=== PATIENT | female | born 1955 | race Caucasian/White ===

== ENCOUNTER → 2022-01-26 11:46 | Outpatient (CLI) | payer OTHER, SELFPAY ==
--- NOTE | 2022-01-26 11:50 | DI.MG.S_ITS ---
BILATERAL DIGITAL SCREENING MAMMOGRAM 3D/2D WITH CAD: 01/26/2022 CLINICAL: Routine screening. Comparison is made to exams dated: 02/19/2015 ultrasound, 02/19/2015 ultrasound, 02/19/2015 mammogram, and 02/03/2010 mammogram - [facility]. The tissue of both breasts is predominantly fatty. Current study was also evaluated with a Computer Aided Detection (CAD) system. There is possible architectural distortion in the left breast at 4 o'clock posterior depth. No other significant masses, calcifications, or other findings are seen in either breast. IMPRESSION: INCOMPLETE: NEEDS ADDITIONAL IMAGING EVALUATION The possible architectural distortion in the left breast is indeterminate. Additional views with possible ultrasound are recommended. This exam was interpreted at Station ID: [id number]. NOTE: For mammograms, a report in lay terms will be sent to the patient. Approximately 15% of breast malignancies will not be visualized mammographically. In the management of a palpable breast mass, a negative mammogram must not discourage biopsy of a clinically suspicious lesion. Electronically Signed By: Jerrod Gill M.D., jr/lisa:01/26/2022 12:11:15 letter sent: Additional Imaging Needed ACR BI-RADS Category 0: Incomplete [id number]
== END ==
PROVIDERS: Family Provider Nurse Practitioner; PCP Nurse Practitioner; Referring Provider Nurse Practitioner; Visit Provider Nurse Practitioner
DX: Z12.31 Encounter for screening mammogram for malignant neoplasm of breast (principal)
CPT/HCPCS: 77063; 77067

== ENCOUNTER → 2022-03-16 12:10 | Outpatient (CLI) | payer OTHER, SELFPAY ==
--- NOTE | 2022-03-16 12:13 | DI.MG.S_ITS ---
UNILATERAL LEFT DIGITAL DIAGNOSTIC MAMMOGRAM 3D/2D WITH ADDITIONAL VIEWS: 03/16/2022 CLINICAL: Additional evaluation requested from prior study. Comparison is made to exams dated: 01/26/2022 mammogram, 02/19/2015 mammogram, and 02/03/2010 mammogram - [facility]. The tissue of left breast is extremely dense, which lowers the sensitivity of mammography. There is possible architectural distortion in the left breast at 4 o'clock posterior depth. This is not seen in additional views. No other significant masses or calcifications are seen in the breast. IMPRESSION: INCOMPLETE: NEEDS ADDITIONAL IMAGING EVALUATION The possible architectural distortion in the left breast is not confirmed. A second look with targeted ultrasound is recommended and will immediately follow. This exam was interpreted at Station ID: [id number]. NOTE: For mammograms, a report in lay terms will be sent to the patient. Approximately 15% of breast malignancies will not be visualized mammographically. In the management of a palpable breast mass, a negative mammogram must not discourage biopsy of a clinically suspicious lesion. Electronically Signed By: Marvin Norris M.D. slc/:03/16/2022 12:39:27 ACR BI-RADS Category 0: Incomplete 3340F
--- NOTE | 2022-03-16 12:14 | DI.US.S_ITS ---
LIMITED ULTRASOUND OF LEFT BREAST: 03/16/2022 CLINICAL: Patient returns today to evaluate an architectural distortion in the left breast. Comparison is made to exams dated: 03/16/2022 mammogram, 01/26/2022 mammogram, and 02/19/2015 mammogram - [facility]. Real-time ultrasound of the left breast 3-5 o'clock region was performed. Seay scale images of the real-time examination were reviewed. No significant abnormalities were seen sonographically in the left breast in the region of possible architectural distortion. IMPRESSION: NEGATIVE There is no sonographic evidence of malignancy. Exam findings were conveyed to the patient. A 1 year screening mammogram is recommended. This exam was interpreted at Station ID: [id number]. Electronically Signed By: Marvin Norris M.D. [facility] [place]/:03/16/2022 12:59:20 Entry: - 03/17/2022 09:42:42 letter sent: Normal Exam Ultrasound BI-RADS: 1 Negative
== END ==
PROVIDERS: Family Provider Nurse Practitioner; PCP Nurse Practitioner; Referring Provider Nurse Practitioner; Visit Provider Nurse Practitioner
DX: R92.2 Inconclusive mammogram (principal)
CPT/HCPCS: 76642; 77065; G0279

== ENCOUNTER → 2024-10-20 14:59 | Outpatient (CLI) | payer MEDICARE, SELFPAY ==
--- NOTE | 2024-10-20 15:01 | DI.MRI.S_ITS ---
PROCEDURE: MR SHOULDER RT WO CON INDICATIONS: CHRONIC RIGHT SHOULDER PAIN TECHNIQUE: Noncontrast oblique coronal T2 fast spin echo with fat saturation, oblique sagittal T1 spin echo and T2 fast spin echo with fat saturation, axial T1 spin echo and T2 fast spin echo with fat saturation through the shoulder. COMPARISON: [facility], , [place] ARTHROGRAM SHOULDER RT, 10/20/2024, 15:39. FINDINGS: Image quality: Diagnostic Rotator cuff: Bulk: No significant atrophy Teres minor: Intact Supraspinatus: Full-thickness small perforating defects in the posterior fibers. The anterior fibers may remain attached. Partial-thickness tears extend along the articular surface of the insertion of the anterior fibers. Background tendinopathy. Infraspinatus: Full-thickness small perforating defects of the anterior fibers. The posterior fibers remain attached. Background tendinopathy and articular surface defects of the posterior fibers. Subscapularis: [id number] tendinopathy Bones and bursae: GH joint: Filled with intra-articular contrast Mild background arthrosis AC joint: Moderate arthrosis Humeral head: No acute fracture. Suspected ganglion cysts are seen at the greater tuberosity at tendinous insertions Scapula and acromion: No acute fracture Bursa: There is edema and fluid within the subacromial/subdeltoid bursa. There is also signal from the injected contrast Capsule: Labrum: Anterior superior semi circumferential labral tear. Long head biceps tendon: The labral tear extends to the biceps anchor. IGHL: No contrast extravasation Rotator interval: Filled with injected contrast Soft tissues: No axillary adenopathy. Lungs are not well seen. IMPRESSION: High-grade tear of the supraspinatus and infraspinatus junctional zone. Contrast extension from the glenohumeral joint to the subacromial/subdeltoid bursa is suggestive of perforating full-thickness components. Background tendinopathy and partial-thickness articular tears are seen in the anterior supraspinatus and posterior infraspinatus fibers. Subscapularis tendinopathy also present. Semi circumferential anterior superior labral tear. This involves the biceps anchor. Moderate acromioclavicular and mild glenohumeral degenerative changes. Dictated by: Bladimir Moise M.D. on 10/20/2024 at 17:04 Approved by: Bladimir Moise M.D. on 10/20/2024 at 17:11
--- NOTE | 2024-10-20 15:01 | DI.RAD.S_ITS ---
PROCEDURE: FL ARTHROGRAM SHOULDER RT INDICATIONS: CHRONIC RIGHT SHOULDER PAIN COMPARISON: None. TECHNIQUE: The indications, alternatives, benefits, risks, and complications of the procedure were explained to the patient. Written informed consent was obtained and placed in the chart. The shoulder was examined fluoroscopically and a site for needle placement chosen for entry into the glenohumeral joint from an anterior rotator interval approach. The skin was prepped and draped in a sterile fashion, and 1% lidocaine infiltrated from skin down to joint capsule. A spinal needle was inserted into the glenohumeral joint, and a small amount of iodinated contrast media injected to confirm intra-articular placement of the needle tip. This was followed by approximately 12 mL dilute solution of a gadolinium containing MR contrast agent. The needle was removed and a dressing was applied. The patient was given postprocedural instructions and sent to the MR suite for MR imaging. FINDINGS: A single fluoroscopic spot image demonstrates intra-articular location of injected iodinated contrast. IMPRESSION: Fluoroscopically guided administration of dilute Gadolinium solution into the right shoulder joint for MR arthrogram. Dictated by: Brandon Palma M.D. on 10/20/2024 at 17:16 Approved by: Brandon Palam M.D. on 10/20/2024 at 17:17
[2024-10-20] MEDS: LIDOCAINE 1% 20 ML INJ (16:03)
[2024-10-20] MEDS: SODIUM CHLORIDE 0.9 % 20 ML VIAL IV (16:03)
== END ==
PROVIDERS: Family Provider Nurse Practitioner; PCP Nurse Practitioner; Referring Provider Nurse Practitioner; Visit Provider Nurse Practitioner
DX: S46.011A Strain of muscle(s) and tendon(s) of the rotator cuff of right shoulder, initial encounter (principal); S43.431A Superior glenoid labrum lesion of right shoulder, initial encounter; M25.511 Pain in right shoulder; R29.898 Other symptoms and signs involving the musculoskeletal system; W10.8XXS Fall (on) (from) other stairs and steps, sequela
CPT/HCPCS: 23350; 73040; 73221; 77002; A9579; Q9967